=== PATIENT | male | born 1990 | race Two or more races ===

== ENCOUNTER 2019-02-26 03:45 | Emergency (ER) | payer BC ==
[~2019-02-26] VITALS: Ht 193 cm; Wt 181.4 kg
[2019-02-26] MEDS ORDERED: HYDROcodone-ACET 10/325MG TAB PO ONE (06:30)
[2019-02-26] MEDS ORDERED: KETOROLAC TROMETH 60MG/2ML VIAL IM ONE (06:30)
[2019-02-26 06:41] VITALS: BP 136/85
== END 2019-02-26 07:17 | disposition home or self-care (01) ==
LOC: ER 03:46
DX: M25.562 Pain in left knee (principal); E66.01 Morbid (severe) obesity due to excess calories; Z68.42 Body mass index [BMI] 45.0-49.9, adult; X58.XXXA Exposure to other specified factors, initial encounter; Y93.89 Activity, other specified; Y92.89 Other specified places as the place of occurrence of the external cause; Y99.8 Other external cause status
CPT/HCPCS: 29505; 73562; 96372; 99283; J1885